=== PATIENT | male | born 1990 | race Two or more races ===

== ENCOUNTER 2021-05-25 23:31 | Emergency (ER) | payer SELFPAY ==
[~2021-05-25] VITALS: Ht 172.7 cm; Wt 72.6 kg
--- NOTE | 2021-05-25 23:45 | NUR ---
PT REFUSING TO ANSWER ANY QUESTIONS OR GIVE ANY PAST MEDICAL HISTORY.
--- NOTE | 2021-05-26 00:42 | NUR ---
PT STILL REFUSING TO ANSWER QUESTIONS OR MEDICAL PROBLEMS.
--- NOTE | 2021-05-26 00:55 | NUR ---
PATIENT BEING DISCHARGED BEFORE BEING TRIAGED. PT REFUSES TO ANSWER ANY QUESTIONS OR COOPERATE. AWARE.
== END 2021-05-26 00:59 | disposition left against medical advice (07) ==
LOC: ER 23:34
DX: R52 Pain, unspecified (principal)